=== PATIENT | female | born 1985 | race Caucasian/White ===

== ENCOUNTER 2018-03-26 18:14 | Emergency (ER) | payer BC, OTHER ==
[~2018-03-26 18:14] MED LIST: IBUP100T54 PO; IBUP600T22 PO; PROM-110 PO
--- NOTE | 2018-03-26 18:23 | ER Report ---
History and Physical Time Seen By MD: 18:23 Hx. of Stated Complaint: MIGRAINE X 2 WEEKS GETTING WORSE WENT FROM A 6 TO A 10 ON PAIN SCALE IN A MATTER OF MINUTES HPI/ROS CHIEF COMPLAINT: migraine headache HISTORY OF PRESENT ILLNESS: This is a 32 year old female. She has a migraine headache. Present for the last 2 weeks. Typical presentation for her headaches, often lasting a long time. However, severe worsening over the last few hours to a 10 on a 1-10 scale. This is the worst headache she has ever had. She has naus ea, photophobia, flashing lights. Gets some speech disturbance, mixing up words. Having shaking of arms/legs. These are all typical symptoms. Has had long lasting headaches, longest in the past was about 2 months. Took over the counter Ibuprofen, which is what she normally uses, without improvement. No other medications used for headaches. No fevers or chills. No recent illness, cough, sore throat or runny nose. No chest pain or shortness of breath. REVIEW OF SYSTEMS: As above. Allergies: Coded Allergies: acetaminophen (Verified Allergy, Intermediate, VOMITING AND THROAT SWELLING., 03/26/18) hydrocodone (Verified Allergy, Intermediate, VOMITING AND THROAT SWELLING., 03/26/18) Home Meds Active Scripts Ketorolac Tromethamine (KETOROLAC TROMETHAMINE) 10 Mg Tab, 10 MG PO Q6H PRN for PAIN, #12 TAB 0 Refills Prov:WILBER VELAZQUEZ MD 03/26/18 Promethazine Hcl (PROMETHAZINE HCL) 25 Mg Tablet, 25 MG PO Q8H PRN for NAUSEA/VOMITING, #20 TAB 0 Refills Prov:WILBER VELAZQUEZ MD 03/26/18 Discontinued Reported Medications Ibuprofen (IBUPROFEN) 100 Mg Tablet, 800 MG PO BID 05/14/13 Discontinued Scripts Ibuprofen (IBUPROFEN) 600 Mg Tablet, 1 TAB PO Q6H PRN for PAIN, #30 Prov:SHRUTHI WARD DO 05/19/13 Promethazine Hcl (PROMETHAZINE HCL) 25 Mg Tablet, 25 MG PO Q4H PRN for NAUSEA, #14 TAB Prov:SHRUTHI WARD DO 05/14/13 Reviewed Nurses Notes: Yes Hx Smoking: No Hx Substance Use Disorder: No Hx Alcohol Use: No Constitutional Vital Sign - Last 24 Hours 10/1703/26/18 03/26/18 03/26/18 18:14 18:17 18:18 18:30 Temp 98.1 Pulse 69 71 Resp 12 B/P (MAP) 136/100 (112) 136/100 133/76 (95) Pulse Ox 93 93 O2 Delivery Room Air Room Air 03/26/18 03/26/18 03/26/18 03/26/18 18:44 19:00 19:05 19:43 Pulse 68 69 B/P (MAP) 124/85 (98) 118/83 (95) Pulse Ox 91 95 O2 Delivery Room Air Room Air 03/26/18 03/26/18 03/26/18 03/26/18 20:00 20:05 20:30 20:35 Pulse 71 66 B/P (MAP) 120/94 (103) 115/67 (83) Pulse Ox 92 94 O2 Delivery Room Air Room Air 03/26/18 03/26/18 03/26/18 03/26/18 20:40 21:00 21:10 21:30 Pulse 69 69 B/P (MAP) 117/65 (82) 113/64 (80) Pulse Ox 93 94 O2 Delivery Room Air Room Air 03/26/18 21:40 Pulse 68 Pulse Ox 93 O2 Delivery Room Air Physical Exam General Appearance: The patient is alert. Acute distress due to headache. Non-toxic in appearance. Eyes: Pupils are equal, round. Reactive to light. No pallor, injection or icterus. Extraocular movements are intact. Photophobia present. ENT: Mucous membranes are moist. Normal oral mucosa. Posterior oropharynx is normal. Neck: Supple and non tender. No lymphadenopathy. Respiratory: Lungs are clear to auscultation. Cardiovascular: Regular rate and rhythm. No murmurs, gallops or rubs. Normal capillary refill. Neurological: Alert and oriented x3. Cranial nerves II through XII show no acute deficits on my exam. No focal neurologic deficits. Skin: Warm and dry. Musculoskeletal: Extremities are nontender. No tenderness in palpation of the neck/spine. DIFFERENTIAL DIAGNOSIS: After history and physical exam, differential diagnosis was considered for headache including but not limited to subarachnoid hemorrhage, migraine headache, tension headache and infectious causes such as meningitis, pharyngitis and sinusitis. Medical Decision Making Data Points Result Diagram: 10/17/18 1846 10/17/18 1846 Laboratory Hematology Test 03/26/18 18:46 Red Blood Count 5.23 M/uL (4.17-5.56) Mean Corpuscular Volume 85.7 fL (80.0-96.0) Mean Corpuscular Hemoglobin 29.9 pg (26.0-33.0) Mean Corpuscular Hemoglobin Concent 34.8 g/dL (32.0-36.0) Red Cell Distribution Width 13.3 % (11.5-14.5) Mean Platelet Volume 7.6 fL (7.2-11.1) Neutrophils (%) (Auto) 52.7 % (39.4-72.5) Lymphocytes (%) (Auto) 36.1 % (17.6-49.6) Monocytes (%) (Auto) 7.0 % (4.1-12.4) Eosinophils (%) (Auto) 3.5 % (0.4-6.7) Basophils (%) (Auto) 0.7 % (0.3-1.4) Nucleated RBC Relative Count (auto) 0.0 /100WBC Neutrophils # (Auto) 3.5 K/uL (2.0-7.4) Lymphocytes # (Auto) 2.4 K/uL (1.3-3.6) Monocytes # (Auto) 0.5 K/uL (0.3-1.0) Eosinophils # (Auto) 0.2 K/uL (0.0-0.5) Basophils # (Auto) 0.0 K/uL (0.0-0.1) Nucleated RBC Absolute Count (auto) 0.00 K/uL Prothrombin Time 13.7 seconds (12.0-14.4) Prothromb Time International Ratio 1.05 Activated Partial Thromboplast Time 30 seconds (23-35) Sodium Level 139 mmol/L (137-145) Potassium Level 3.6 mmol/L (3.5-5.0) Chloride Level 102 mmol/L (98-107) Carbon Dioxide Level 24 mmol/L (22-31) Blood Urea Nitrogen 10 mg/dl (7-18) Creatinine 0.60 mg/dl (0.52-1.04) Glomerular Filtration Rate Calc > 60.0 Random Glucose 90 mg/dl (75-110) Calcium Level 8.9 mg/dl (8.4-10.2) Magnesium Level 1.9 mg/dl (1.7-2.2) Total Bilirubin 0.4 mg/dl (0.2-1.3) Aspartate Amino Transf (AST/SGOT) 24 U/L (0-35) Alanine Aminotransferase (ALT/SGPT) 36 U/L (0-56) Alkaline Phosphatase 75 U/L (0-126) Total Protein 7.6 g/dl (6.3-8.2) Albumin 4.1 g/dl (3.5-5.0) Human Chorionic Gonadotropin, Qual Negative (NEGATIVE) Chemistry Test 03/26/18 18:46 White Blood Count 6.7 k/uL (4.5-11.0) Red Blood Count 5.23 M/uL (4.17-5.56) Hemoglobin 15.6 g/dL (12.0-16.0) Hematocrit 44.8 % (34.0-47.0) Mean Corpuscular Volume 85.7 fL (80.0-96.0) Mean Corpuscular Hemoglobin 29.9 pg (26.0-33.0) Mean Corpuscular Hemoglobin Concent 34.8 g/dL (32.0-36.0) Red Cell Distribution Width 13.3 % (11.5-14.5) Platelet Count 279 K/uL (150-450) Mean Platelet Volume 7.6 fL (7.2-11.1) Neutrophils (%) (Auto) 52.7 % (39.4-72.5) Lymphocytes (%) (Auto) 36.1 % (17.6-49.6) Monocytes (%) (Auto) 7.0 % (4.1-12.4) Eosinophils (%) (Auto) 3.5 % (0.4-6.7) Basophils (%) (Auto) 0.7 % (0.3-1.4) Nucleated RBC Relative Count (auto) 0.0 /100WBC Neutrophils # (Auto) 3.5 K/uL (2.0-7.4) Lymphocytes # (Auto) 2.4 K/uL (1.3-3.6) Monocytes # (Auto) 0.5 K/uL (0.3-1.0) Eosinophils # (Auto) 0.2 K/uL (0.0-0.5) Basophils # (Auto) 0.0 K/uL (0.0-0.1) Nucleated RBC Absolute Count (auto) 0.00 K/uL Prothrombin Time 13.7 seconds (12.0-14.4) Prothromb Time International Ratio 1.05 Activated Partial Thromboplast Time 30 seconds (23-35) Glomerular Filtration Rate Calc > 60.0 Calcium Level 8.9 mg/dl (8.4-10.2) Magnesium Level 1.9 mg/dl (1.7-2.2) Total Bilirubin 0.4 mg/dl (0.2-1.3) Aspartate Amino Transf (AST/SGOT) 24 U/L (0-35) Alanine Aminotransferase (ALT/SGPT) 36 U/L (0-56) Alkaline Phosphatase 75 U/L (0-126) Total Protein 7.6 g/dl (6.3-8.2) Albumin 4.1 g/dl (3.5-5.0) Human Chorionic Gonadotropin, Qual Negative (NEGATIVE) Coagulation Test 03/26/18 18:46 Prothrombin Time 13.7 seconds Prothromb Time International Ratio 1.05 Activated Partial Thromboplast Time 30 seconds EKG/Imaging Imaging HEAD W/O CONTRAST Provided history: Headache Additional pertinent history: none TECHNIQUE: Imaging was obtained from the skull base through the vertex without intravenous contrast. Source images were reformatted in the coronal sagittal planes. One of the following dose optimization techniques was utilized in the performance of this exam: Automated exposure control; adjustment of the mA and/or kV according to the patient's size; or use of an iterative reconstruction technique. Specific details can be referenced in the facility's radiology CT exam operational policy. Additional imaging: none COMPARISON STUDIES: No relevant priors FINDINGS: Brain volume: Normal Acute cortical ischemia: None Chronic cortical and ganglionic ischemia: none significant Hemorrhage: None Masses / edema: There is a 2 mm hyperdensity projecting in the midline within the anterior third ventricle. This most likely minimal calcification of the choroid though I see no additional coronary calcification in this region. A very early colloid cyst is possible but less likely. White matter: Normal Vessels: Normal Extra-axial: None significant. Globular calcification of the pineal noted, typically not significant. No soft tissue attenuation mass. Calvarium / scalp: Negative Skull base: negative Visualized sinuses / orbits: negative IMPRESSION: 1. No evidence of hemorrhage or ischemia. 2. Small focus of hyperdensity in the midline of the anterior third ventricle. See above comments. This is probably not significant, however I would suggest a follow-up examination, preferably MRI in one year to document stability. Report Dictated By: Gonzales Valerio MD at 03/26/2018 7:53 PM ED Course/Re-evaluation Clinical Indication for ER IV: Hydration, IV Access ED Course Improved with Phenergan 12.5mg IV and Benadryl 25mg IV. Given 1000cc NS IV as well. CT scan negative for bleed. Patient given Toradol 30mg IV as well. Pain down to 5 on a 1-10 scale. Sleeping. Given oral Toradol and Phenergan that she c an use at home. Decision to Disposition Date: Mar 26, 2018 Decision to Disposition Time: 21:38 Depart Departure Latest Vital Signs Vital Signs Date Time Temp Pulse Resp B/P (MAP) Pulse Ox O2 Delivery O2 Flow Rate FiO2 03/26/18 21:40 68 93 Room Air 03/26/18 21:30 113/64 (80) 03/26/18 18:18 98.1 12 Impression: Primary Impression: Migraine Condition: Improved Disposition: HOME OR SELF-CARE New Scripts Ketorolac Tromethamine (KETOROLAC TROMETHAMINE) 10 Mg Tab 10 MG PO Q6H PRN for PAIN, #12 TAB 0 Refills Prov: WILBER VELAZQUEZ MD 03/26/18 Promethazine Hcl (PROMETHAZINE HCL) 25 Mg Tablet 25 MG PO Q8H PRN for NAUSEA/VOMITING, #20 TAB 0 Refills Prov: WILBER VELAZQUEZ MD 03/26/18 Patient Instructions: Migraine Headache (ED) Additional Instructions: Rest and increase fluid intake the next few days. Take Toradol 10mg, one every 6 hours as needed for headache. Take Phenergan 25mg, one every 8 hours as needed for headache and nausea. Problem Qualifiers Primary Impression: Migraine Migraine type: unspecified Status migrainosus presence: without status migrainosus Intractability: not intractable Qualified Codes: G43.909 - Migraine, unspecified, not intractable, without status migrainosus WILBER VELAZQUEZ MD Mar 26, 2018 18:23
[2018-03-26] MEDS ORDERED: PROMETHAZINE 25 MG/ML 1 ML AMP IVP ONE (18:40)
[2018-03-26] MEDS ORDERED: diphenhydrAMINE 50 MG/ML VIAL IVP ONE (18:40)
[2018-03-26] MEDS ORDERED: NS(*) 0.9% 1000 ML BAG 1,000 ML IV ONE (18:40)
[2018-03-26 19:08] LABS: INR 1.05
[2018-03-26 19:13] LABS: PLATELET COUNT, AUTOMATED 279 K/uL (150-450)
--- NOTE | 2018-03-26 20:08 | RADIOLOGY IMAGING REPORT ---
FACILITY: [facility] PATIENT NAME: Ginger Daugherty : 1985 MR: [id number] V: [id number] EXAM DATE: ORDERING PHYSICIAN: WILBER VELAZQUEZ TECHNOLOGIST: Location: [facility] - [place] Patient: Ginger Daugherty : 1985 Visit/Account:[id number] Date of Sevice: 03/26/2018 HEAD W/O CONTRAST Provided history: Headache Additional pertinent history: none TECHNIQUE: Imaging was obtained from the skull base through the vertex without intravenous contrast. Source images were reformatted in the coronal sagittal planes. One of the following dose optimization techniques was utilized in the performance of this exam: Autom ated exposure control; adjustment of the mA and/or kV according to the patient's size; or use of an i terative reconstruction technique. Specific details can be referenced in the facility's radiology CT exam operational policy. Additional imaging: none COMPARISON STUDIES: No relevant priors FINDINGS: Brain volume: Normal Acute cortical ischemia: None Chronic cortical and ganglionic ischemia: none significant Hemorrhage: None Masses / edema: There is a 2 mm hyperdensity projecting in the midline within the anterior third vee tricle. This most likely minimal calcification of the choroid though I see no additional coronary carlos cification in this region. A very early colloid cyst is possible but less likely. White matter: Normal Vessels: Normal Extra-axial: None significant. Globular calcification of the pineal noted, typically not significant . No soft tissue attenuation mass. Calvarium / scalp: Negative Skull base: negative Visualized sinuses / orbits: negative IMPRESSION: 1. No evidence of hemorrhage or ischemia. 2. Small focus of hyperdensity in the midline of the anterior third ventricle. See above comments. Th is is probably not significant, however I would suggest a follow-up examination, preferably MRI in on e year to document stability. Report Dictated By: Gonzales Valerio MD at 03/26/2018 7:53 PM Report E-Signed By: Gonzales Valerio MD at 03/26/2018 8:03 PM WSN:[id number]
[2018-03-26] MEDS ORDERED: KETOROLAC 30 MG/ML VIAL IVP ONE (21:10)
[2018-03-26 21:30] VITALS: BP 113/64
[2018-03-26] MEDS ORDERED: KETOROLAC TROM 10 MG TAB TH PO ONE (21:40)
[2018-03-26] MEDS ORDERED: PROMETHAZINE HCL 25 MG TAB TH 2 TAB/BOTTLE PO ONE (21:40)
[2018-03-26] MEDS ORDERED: PROM-110 PO (21:53)
[2018-03-26] MEDS ORDERED: KET10 PO (21:53)
== END 2018-03-26 22:02 | disposition home or self-care (01) ==
LOC: ER 18:55
DX: G43.909 Migraine, unspecified, not intractable, without status migrainosus (principal)
CPT/HCPCS: 83735; 84703; 85025; 85610; 85730; 96361; 96374; 96375; 99284; J1200; J1885; J2550; J7030; 70450; 82040; 82247; 82310; 82374; 82435; 82565; 82947; 84075; 84132; 84155; 84295; 84450; 84460; 84520

== ENCOUNTER 2018-04-13 14:22 | Emergency (ER) | payer OTHER ==
[~2018-04-13 14:22] MED LIST changes: +KET10 PO
--- NOTE | 2018-04-13 14:37 | ER Report ---
History and Physical Time Seen By MD: 14:36 Hx. of Stated Complaint: migraine x 35 days with transient loss of vision and balance difficulties. HPI/ROS CHIEF COMPLAINT: Migraine headache HISTORY OF PRESENT ILLNESS: Patient is a 32-year-old female with a history of migraines here with migraine headache for the past 35 days. Patient was evaluated on the for similar symptoms at which time she had a CT scan of the head which was unremarkable. Patient reports taking Toradol intermittently without relief of symptoms. Patient reports that the distribution of her current symptoms are similar to prior episodes. Patient is afebrile, hemodynamically stable and denies neurological deficits of distal extremity weakness or paresthesias. Patient is eating and drinking without issues and denies fevers, chest pain, shortness breath, abdominal pain, vomiting. She does endorse photosensitivity. Denies recent trauma to the head. REVIEW OF SYSTEMS: Constitutional: No fever, no chills. Eyes: No discharge. ENT: No sore throat. Cardiovascular: No chest pain, no palpitations. Respiratory: No cough, no shortness of breath. Gastrointestinal: No abdominal pain, no vomiting, + nausea. Genitourinary: No hematuria. Musculoskeletal: No back pain. Skin: No rashes. Neurological: + headache,, no dyspnea distal extremity paresthesias, motor weakness Allergies: Coded Allergies: acetaminophen (Verified Allergy, Intermediate, VOMITING AND THROAT SWELLING., 04/13/18) hydrocodone (Verified Allergy, Intermediate, VOMITING AND THROAT SWELLING., 04/13/18) Home Meds Active Scripts Ketorolac Tromethamine (KETOROLAC TROMETHAMINE) 10 Mg Tab, 10 MG PO Q6H PRN for PAIN, #12 TAB 0 Refills Prov:WILBER VELAZQUEZ MD 03/26/18 Promethazine Hcl (PROMETHAZINE HCL) 25 Mg Tablet, 25 MG PO Q8H PRN for NAUSEA/VOMITING, #20 TAB 0 Refills Prov:WILBER VELAZQUEZ MD 03/26/18 Hx Smoking: No Hx Substance Use Disorder: No Hx Alcohol Use: No Constitutional Vital Sign - Last 24 Hours 04/13/18 14:31 Temp 97.8 Pulse 76 Resp 16 B/P (MAP) 128/80 Pulse Ox 94 O2 Delivery Room Air Physical Exam General Appearance: The patient is alert, has no immediate need for airway protection and no signs of toxicity. Mild distress secondary to pain Eyes: Pupils equal and round no pallor or injection. ENT, Mouth: Mucous membranes are moist. Respiratory: There are no retractions, lungs are clear to auscultation. Cardiovascular: Regular rate and rhythm. Gastrointestinal: Abdomen is soft and non tender, no masses, bowel sounds normal. Neurological: No focal neurological deficits Skin: Warm and dry, no rashes. Musculoskeletal: Neck is supple non tender. Extremities are nontender, nonswollen and have full range of motion. DIFFERENTIAL DIAGNOSIS: After history and physical exam differential diagnosis was considered for headache including but not limited to subarachnoid hemorrhage, migraine headache, tension headache and infectious causes such as meningitis, pharyngitis and sinusitis. Medical Decision Making ED Course/Re-evaluation ED Course Patient is a 32-year-old female here with suspected migraine which is been present for the past 35 days. Patient was seen here previously on the at which time she had had a negative CT of the head. Patient reports taking Toradol at home without significant relief of symptoms. She was given IV fluids, Reglan, Benadryl, Toradol, Decadron, magnesium today for symptom management and had significant relief of symptoms. Due to the patient's recurrent headaches and l jessa-duration of migraines, I recommended that she follow up with a neurologist or a headache specialist for further evaluation. Patient was stable at time of discharge. Decision to Disposition Date: Apr 13, 2018 Decision to Disposition Time: 16:33 Depart Departure Latest Vital Signs Vital Signs Date Time Temp Pulse Resp B/P (MAP) Pulse Ox O2 Delivery O2 Flow Rate FiO2 04/13/18 14:31 97.8 76 16 128/80 94 Room Air Impression: Primary Impression: Migraine Condition: Improved Disposition: HOME OR SELF-CARE Patient Instructions: Migraine Headache (GEN) Additional Instructions: Please drink plenty of water. Please follow-up with your family doctor in the next week. Please consider being evaluated by a neurologist or a headache specialist in order to be placed on migraine medications that may be more effective than [id number] medications. Please return promptly with recurrent headaches, neurological deficits such as weakness, numbness, fevers. DAVID BYERS DO Apr 13, 2018 14:37
[2018-04-13] MEDS ORDERED: NS(*) 0.9% 1000 ML BAG 1,000 ML IV ONE (14:44)
[2018-04-13] MEDS ORDERED: METOCLOPRAMIDE 10 MG/2 ML SDV IVP ONE (14:45)
[2018-04-13] MEDS ORDERED: diphenhydrAMINE 50 MG/ML VIAL IVP ONE (14:45)
[2018-04-13] MEDS ORDERED: DEXAMETHASONE SOD PHOS 10MG/ML IVP ONE (14:45)
[2018-04-13] MEDS ORDERED: KETOROLAC 30 MG/ML VIAL IVP ONE (14:45)
[2018-04-13] MEDS ORDERED: MAGNESIUM SUL/D5W* 1 GM/100 ML 100 ML IVPB ONE (14:45)
[2018-04-13 16:30] VITALS: BP 97/66
== END 2018-04-13 16:47 | disposition home or self-care (01) ==
LOC: ER 14:37
DX: G43.909 Migraine, unspecified, not intractable, without status migrainosus (principal)
CPT/HCPCS: 96365; 96366; 96375; 99284; J1100; J1200; J1885; J2765; J3475; J7030

== ENCOUNTER → 2018-06-06 | Outpatient (CLI) | payer OTHER ==
[2018-06-06 12:00] LABS: PLATELET COUNT, AUTOMATED 255 K/uL (150-450)
== END ==
LOC: LAB 08:03
PROVIDERS: ATTEND Obstetrics & Gynecology
DX: Z34.91 Encounter for supervision of normal pregnancy, unspecified, first trimester (principal)
CPT/HCPCS: 36415; 81001; 85025; 86592; 86703; 86762; 86850; 86900; 86901; 87088; 87340

== ENCOUNTER → 2018-08-28 | Outpatient (CLI) | payer OTHER ==
--- NOTE | 2018-08-28 13:29 | RADIOLOGY IMAGING REPORT ---
[place] [facility] [place] NAME: Ginger Daugherty : 1985 MR: [id number] V: [id number] EXAM DATE: ORDERING PHYSICIAN: MAYRA MAURO [place]CHN[place] [facility] [place] D[place] : 1985 Visit/Account:[id number] Date of Sevice: 08/28/2018 EXAMINATION: Ultrasound transabdominal OB > 14 weeks with anatomic evaluation HISTORY: Anatomic survey COMPARISON: None. TECHNIQUE: Transabdominal imaging was performed for assessment of the fetus and maternal pelvic structures. T ransvaginal imaging was not performed. FINDINGS: Placenta: Fundal without previa. Uterus: Gravid, otherwise normal Cervix: Long and closed. Maternal Ovaries: Not visualized. Maternal and other adnexa findings: Not evaluated Intrauterine gestations: One. presentation: Variable heart rate: Normal and regular at 142 bpm Amniotic fluid index: 20.02 cm Largest amniotic fluid pocket: 6.93 cm Gestational Parameters: BPD: 5.35 cm 22 weeks/ two days, 64% HC: 20.55 cm two weeks/ five days, 72% AC: 17.53 cm 22 weeks/ four days, 62% FL: 3.66 cm 21 weeks/ five days, 32% Average ultrasound age (AUA): 22 weeks/three days, KATLYN 12/29/2018 Estimated gestational age by KATLYN: 21 weeks/six days, KATLYN 01/02/2019 Estimated weight (EFW): 480 grams +/- 70 grams EFW for KATLYN: 59 percentile Anatomic Survey: Intracranial structures, 4-chamber heart, stomach, kidneys, urinary bladder, spine, 3-vessel cord and cord insertion are unremarkable. Two upper and two lower extremities visualized. Cardiac ventricula r outflow tracts, palate and lips are unremarkable in appearance. IMPRESSION: Single viable fetus in variable presentation with an estimated gestational age by measur ements of 22 weeks and three days. The estimated gestational age by LMP is 21 weeks and six days Report Dictated By: Modesta Fournier MD at 08/28/2018 12:56 PM Report E-Signed By: Modesta Fournier MD at 08/28/2018 1:24 PM ANGELN:TATIANNA
== END ==
LOC: US 00:17
PROVIDERS: ATTEND Obstetrics & Gynecology
DX: Z36.89 Encounter for other specified antenatal screening (principal); Z32.2 Encounter for childbirth instruction
CPT/HCPCS: 76805

== ENCOUNTER → 2018-10-10 | Outpatient (CLI) | payer OTHER ==
[~2018-10-10] MED LIST changes: +DIPH0.5S2 IM
[2018-10-10 11:29] LABS: PLATELET COUNT, AUTOMATED 248 K/uL (150-450)
== END ==
LOC: LAB 09:54
PROVIDERS: ATTEND Advanced Practice Midwife
DX: Z34.92 Encounter for supervision of normal pregnancy, unspecified, second trimester (principal)
CPT/HCPCS: 36415; 82950; 85025

== ENCOUNTER → 2018-10-14 | Outpatient (CLI) | payer OTHER ==
[~2018-10-14] MED LIST changes: +BLOO-960 MC; +LANC-165 MC; +[UNRECOGNIZED DRUG - CODE] MC
== END ==
LOC: LAB 07:30
PROVIDERS: ATTEND Advanced Practice Midwife
DX: O99.810 Abnormal glucose complicating pregnancy (principal)
CPT/HCPCS: 36415; 82951; 82952

== ENCOUNTER → 2018-10-16 | Outpatient (CLI) | payer OTHER ==
--- NOTE | 2018-10-16 17:19 | RADIOLOGY IMAGING REPORT ---
FACILITY: [facility] - [place] PATIENT NAME: Ginger Daugherty : 1985 MR: [id number] V: [id number] EXAM DATE: ORDERING PHYSICIAN: WILLIE CHOPRA TECHNOLOGIST: Location: Patient: Ginger Daugherty : 1985 Visit/Account:[id number] Date of Sevice: 10/16/2018 EXAMINATION: Ultrasound transabdominal OB > 14 weeks with anatomic evaluation HISTORY: Growth check COMPARISON: None. TECHNIQUE: Transabdominal imaging was performed for assessment of the fetus and maternal pelvic structures. T ransvaginal imaging was not performed. FINDINGS: Placenta: Fundal without previa. Uterus: Gravid, otherwise normal Cervix: Long and closed. Maternal Ovaries: Not visualized. Maternal and other adnexa findings: Negative. Intrauterine gestations: One. presentation: Cephalic heart rate: Normal and regular at 152 bpm Amniotic fluid index: 22.46 cm Largest amniotic fluid pocket: 6.36 cm Gestational Parameters: BPD: 7.79 cm 31 weeks/ 2 days, 95th percentile HC: 28.42 cm 31 weeks/ 2 days, 84 percentile AC: 25.81 cm 30 weeks/ 0 days, 76 percentile FL: 5.25 cm 28 weeks/ 0 days, 14 percentile Average ultrasound age (AUA): 30 weeks/1 days, Estimated gestational age by LMP: 28 weeks/6 days, KATLYN 01/02/2019 Estimated weight (EFW): 1409 grams +/- 206 grams EFW for LMP: 63 percentile Anatomic Survey: Visualized intracranial contents and the abdomen and pelvis are normal. IMPRESSION: 1. Single live intrauterine fetus in the cephalic presentation. 2. Ultrasound age is 30 weeks and 1 days, consistent with gestational age based on LMP. Gestational a ge by LMP is 28 weeks and 6 days corresponding to estimated date of delivery 01/02/2019. Report Dictated By: Abdelrahman Roland at 10/16/2018 5:05 PM Report E-Signed By: Abdelrahman Roland at 10/16/2018 5:14 PM WSN:[id number]
== END ==
LOC: RAD 15:00
PROVIDERS: ATTEND Advanced Practice Midwife
DX: Z02.9 Encounter for administrative examinations, unspecified (principal)

== ENCOUNTER 2018-10-23 10:16 | Outpatient (RCR) | payer OTHER ==
--- NOTE | 2018-10-24 16:16 | Medical Nutrition Therapy ---
Nutrition/Food History Breakfast: WG joselyn chawla, PB Lunch: slad with cheese and croutons Dinner: 2 sl pizza, breadstick Snacks: banana, 2 cuties, almonds Nutritional Education Nutrition Education Topic: Diabetic Nutrition (estational) Learning Readiness: Interested Teaching Methods: Discussion, Handout, Demonstration Response to Teaching: Verbalize understanding Teaching Recipient: Patient, Significant Other Nutrition Counseling: late entry for 10/23 Reviewed what is gestational DM. Reviewed reviewed desired range of BG. Demonstated glucometer and how to use. Reviewed glycemic response to CHO. Reviewed high CHO, protein and fat foods. Encouraged pt eat high protein foods whenever she eats a high CHO. Provided meal plan of 30gm CHO + protein and fat at breakfast, 45 gm CHO with lunch and supper and 15gm CHO + protein or fat snacks tid. Pt will check on work schedule before makeing f/u visit. 10/24 f/u phone call. Pt states all BG are WNR except a 97 FBG this morning. Pt having no problems with glucometer. Still does not have work scheduled. Pt was encouraged to call for appointment if BG not within range or had quetions or concerns with diet. Nutrition Monitoring & Eval RD Patient Assessment Time: [address] Assessment Type: RD Education Nutritional Comment: Provided 60 minute diabetes education forcusing on nutrion, gestational DM and glucometer teaching Copies To Copies to: WILLIE CHOPRA CNM ; SEFERINO WHITING October 24, 2018 16:07
--- NOTE | 2018-11-05 17:06 | Medical Nutrition Therapy ---
Nutritional Education Nutrition Education Topic: Diabetic Nutrition (gestational) Learning Readiness: Interested Teaching Methods: Discussion Response to Teaching: Verbalize understanding Teaching Recipient: Patient, Significant Other Nutrition Counseling: Reviewed BG records and intake. most BG were within desired range. Pt had 2 low BG before breakfast of 32 and 65. Recommend pt eat 15 gm quick acting CHO wait 15 minute and recheck BG and repeat until WNR then eat breakfast. Pt had several slightly high BG at supper. Identified at those times but either had higher glycemic index drink or excessive CHO. Discussed other option when going out to eat or movies that would be within her recommended CHO limit or lower GI food. Nutrition Monitoring & Eval RD Patient Assessment Time: [address] Assessment Type: RD Education Nutritional Comment: Provided 45 minute diabetes education forcusing on nutrion and blood glucose readings. Copies To Copies to: WILLIE CHOPRA CNM ; SEFERINO WHITING November 05, 2018 17:06
== END 2018-11-12 15:52 | disposition home or self-care (01) ==
LOC: DIET 10:16
PROVIDERS: ATTEND Advanced Practice Midwife
DX: O24.419 Gestational diabetes mellitus in pregnancy, unspecified control (principal)
CPT/HCPCS: G0108 ×4

== ENCOUNTER → 2018-11-20 | Outpatient (CLI) | payer OTHER ==
--- NOTE | 2018-11-20 11:20 | RADIOLOGY IMAGING REPORT ---
[facility] PATIENT NAME: Ginger Daugherty : 1985 MR: [id number] V: [id number] EXAM DATE: ORDERING PHYSICIAN: DAVON BAILEY TECHNOLOGIST: Location: [facility] Patient: Ginger Daugherty : 1985 Visit/Account:[id number] Date of Sevice: 11/20/2018 EXAMINATION: Ultrasound transabdominal OB > 14 weeks with anatomic evaluation HISTORY: Size date discrepancy COMPARISON: October 16, 2018 TECHNIQUE: Transabdominal imaging was performed for assessment of the fetus and maternal pelvic structures. T ransvaginal imaging was not performed. FINDINGS: Placenta: Fundal without previa. Uterus: Gravid, otherwise normal Cervix: Long and closed. Maternal Ovaries: Not visualized. Maternal and other adnexa findings: Not visualized Intrauterine gestations: One. presentation: Cephalic presentation with spine to the maternal left heart rate: Normal and regular at 138 bpm Amniotic fluid index: 16.49 cm Largest amniotic fluid pocket: 6.77 cm Gestational Parameters: BPD: 9.1 cm 37 weeks/ zero days, greater than 98% HC: 32.5 cm 36 weeks/ six days, 85% AC: 31.75 cm 35 weeks/ five days, 93% FL: 6.90 cm 35 weeks/ three days, 80% Average ultrasound age (AUA): 36 weeks/two days, KATLYN 12/16/2018 Estimated gestational age by LMP: 33 weeks/six days, KATLYN 01/02/2019 Estimated weight (EFW): 2786 grams +/- 407 grams EFW for KATLYN: 93 percentile Anatomic Survey: Anatomic survey not performed IMPRESSION: Single viable fetus in cephalic presentation with an estimated gestational age by measur ements 36 weeks and two days. The estimated gestational age by LMP is 33 weeks and six days. The estimated weight 2786 g equivalent to the 93rd percentile Report Dictated By: Modesta Fournier MD at 11/20/2018 11:07 AM Report E-Signed By: Modesta Fournier MD at 11/20/2018 11:14 AM WSN:[email or web address]
== END ==
LOC: RAD 09:56
PROVIDERS: ATTEND Obstetrics & Gynecology
DX: Z02.9 Encounter for administrative examinations, unspecified (principal)

== ENCOUNTER → 2018-12-04 | Outpatient (CLI) | payer OTHER | LOC: LAB 10:01 | PROVIDERS: ATTEND Obstetrics & Gynecology | DX: Z36.85 Encounter for antenatal screening for Streptococcus B (principal) | CPT/HCPCS: 87081 ==

== ENCOUNTER → 2018-12-18 | Outpatient (CLI) | payer OTHER ==
--- NOTE | 2018-12-18 11:09 | RADIOLOGY IMAGING REPORT ---
FACILITY: [facility] PATIENT NAME: Ginger Daugherty : 1985 MR: [id number] V: [id number] EXAM DATE: ORDERING PHYSICIAN: WILLIE CHOPRA TECHNOLOGIST: Location: [facility] Patient: Ginger Daugherty : 1985 Visit/Account:[id number] Date of Sevice: 12/18/2018 Limited OB ultrasound Indication: Size less than dates Comparison: 11/20/2018 FINDINGS: Intrauterine gestations: one presentation: Vertex heart rate: 144 bpm Amniotic fluid index: 18.8 cm Largest amniotic fluid pocket 7.2 cm Placenta: Fundal without previa Uterus: gravid, otherwise normal Cervix: Not visualized Gestational Parameters: BPD: 9.6 cm 39 weeks, 2 days, 95th percentile HC: 35.5 cm 41 weeks, 5 days, 97th percentile AC: 35.9 cm 39 weeks, 6 days, 97th percentile FL: 7.6 cm 39 weeks, 1 day, 79th percentile Average ultrasound age (AUA): 40 weeks, 0 days KATLYN: 12/18/2018 based on AUA Estimated weight (EFW): 3894 g, +/- 569 EFW for AUA: 95th percentile Anatomic survey: Not performed IMPRESSION: 1. Single live intrauterine gestation; estimated ultrasound age 40 weeks, 0 days, 2. Estimated weight 3894 g, 95th percentile. Report Dictated By: Manjinder Barrios DO at 12/18/2018 10:55 AM Report E-Signed By: Manjinder Barrios DO at 12/18/2018 11:01 AM WSN:[email or web address]
== END ==
LOC: RAD 09:57
PROVIDERS: ATTEND Obstetrics & Gynecology
DX: O26.843 Uterine size-date discrepancy, third trimester (principal); Z3A.40 40 weeks gestation of pregnancy

== ENCOUNTER 2018-12-23 23:34 | Outpatient (CLI) | payer OTHER ==
[2018-12-24 00:10] VITALS: BP 125/66
--- NOTE | 2018-12-24 00:17 | History & Physical ---
History of Present Illness EDC per U/S: Jan 02, 2019 Estimated Gestational Age: 38.5 Chief Complaint Contractions History of Present Illness 33-year-old at 38w5d presents to L&D for contractions. She denies loss of fluid or vaginal bleeding. She reports good movement. She denies preeclampsia symptoms. care by IMG. Her is complicated by GDMA1 and concern for macrosomia. Her last EFW on 12/18/18 was 95%ile at almost 4000gm. She has been noted to have a narrow pubic arch. She was offered PLTCD in clinic by Dr. Christina but elects for trial of labor. She is also GBS positive. History Patient's Blood Type: B Positive Rubella Status: Immune Group B Strep Screen: Positive Obstetrical History: Primip Past Medical History: PMH: Migraines PSH: Cholecystectomy 2006 Allergies: Coded Allergies: acetaminophen (Verified Allergy, Intermediate, VOMITING AND THROAT SWELLING., 04/13/18) hydrocodone (Verified Allergy, Intermediate, VOMITING AND THROAT SWELLING., 04/13/18) Social History: No T/E/D. . Family History: FH: cancer MGF (Lungs ) FH: cardiovascular disease MGM PGM FH: diabetes mellitus MGM MGF Med Rec Home Meds Active Scripts Blood Sugar Diagnostic (BLOOD GLUCOSE TEST) 1 Each Strip, 1 EACH QID for Gestational Diabetes, #100 STRIP 4 Refills Prov:WILLIE CHOPRA [facility] 10/14/18 Lancets (Blood Lancets) 30 Gauge Each, EA QID for Gestational Diabetes, #100 4 Refills Prov:WILLIE CHOPRA [facility] 10/14/18 Blood-Glucose Meter (BLOOD GLUCOSE METER) 1 Each Each, EACH for Gestational Diabetes, #1 0 Refills Check blood sugar every morning and 2 hours after each meal. Prov:WILLIE CHOPRA [facility] 10/14/18 Review of Systems Constitutional: No Fever Neurological: No Syncope Eyes: No Vision Change Cardiovascular: No Chest Pain Respiratory: No Shortness of Breath Gastrointestinal: No Nausea, No Vomiting, No Diarrhea Genitourinary: No Dysuria Musculoskeletal: No Pain Psychiatric: No Depression, No Anxiety Exam General Exam Vital Signs VS reviewed General Apperance: Alert/Awake/No Acute Distress Neuro: No Gross deficits Eyes: Normal Extraocular Movement & Vison Cardiovascular: Regular Rate and Rhythm Respiratory: No Respiratory Distress, Clear to Auscultation Abdomen: Gravid - Non-Tender : Normal Musculoskeletal: No Weakness/Pain Extremities: No Cyanosis,Clubbing or Edema Integumentary: Skin Intact without Lesions or Rash Psychological: Alert & Oriented X3, Appropriate Mood & Affect Cervical Dialation: 1 Cervical Effacement (%): 70 Cervical Consistency: Soft Cervical Position: Posterior Station: -2 Presentation: Vertex Fetus FHT Category: I Medical Decision Making Pre-Admit Course Medical Record Review: Yes Assessment and Plan Problems: (1) Uterine contractions Assessment & Plan: 33-year-old at 38w5d presents to L&D for contractions. Will monitor for cervical change. (2) GDM (gestational diabetes mellitus), class A1 Assessment & Plan: Will do random glucose and monitor glucose as needed. (3) Macrosomia affecting management of mother in third trimester Assessment & Plan: Last ultrasound on 12/18/18 showed: CHRISTOPHER 18.8cm, EFW 3894 gm (95%ile). She has been offered a primary due to this and having a narrow pubic arch. However, she declines and would like a trial of labor. Will monitor closely. (4) GBS (group B Streptococcus carrier), +RV culture, currently Assessment & Plan: If deemed in labor, will initiate PCN prophylaxis. (5) 38 weeks gestation of Problem Qualifiers (1) Macrosomia affecting management of mother in third trimester: Fetus number: single or unspecified fetus Qualified Codes: O36.63X0 - Maternal care for excessive growth, third trimester, not applicable or u nspecified MAYRA MAURO MD Dec 23, 2018 23:52
[2018-12-25] MEDS ORDERED: LR(*) 1000 ML BAG 1,000 ML IV PRN (20:08)
[2018-12-25] MEDS ORDERED: FAMOTIDINE(*) 20MG/50ML PREMIX 50 ML IVPB PRN (20:08)
[2018-12-25] MEDS ORDERED: OXYTOCIN 30 UNIT/NS 500 ML 500 ML IV PRN (20:08)
[2018-12-25] MEDS ORDERED: MISOPROSTOL 25 MCG CAP PV PRN (20:10)
[2018-12-25] MEDS ORDERED: FLUSH 10 ML SYR IVP PRN (20:10)
[2018-12-25] MEDS ORDERED: PENICILLIN G 5 MILLUN VIAL 5 MIU in NS(*) 0.9% 100 ML MINI-BAG 100 ML IVPB ONE (20:10)
[2018-12-25] MEDS ORDERED: fentaNYL CITR 100 MCG/2 ML AMP IVP PRN (20:10)
[2018-12-25] MEDS ORDERED: METOCLOPRAMIDE 10 MG/2 ML SDV IVP PRN (20:10)
[2018-12-25] MEDS ORDERED: LIDOCAINE/SOD BICARB 8.4% SYR SC PRN (20:10)
[2018-12-25] MEDS ORDERED: LIDOCAINE 1% LOCAL 300 MG/30ML INJ PRN (20:10)
[2018-12-26] MEDS ORDERED: PENICILLIN G 2.5 MILLUN/100 ML 100 ML IVPB SCH ×2 (16:00)
== END 2018-12-24 02:50 | disposition home or self-care (01) ==
LOC: OB 23:34 → L&D 23:34 → UNDOADMOB 23:34 → OB 23:34 → UNDODISOB 12-24 02:50 → L&D 12-24 02:50 → UNDOADMIN 12-25 18:42 → OB 12-25 18:42 → EDSTATUS 01-09 20:02
PROVIDERS: ATTEND Obstetrics & Gynecology
DX: O47.1 False labor at or after 37 completed weeks of gestation (principal); O36.63X0 Maternal care for excessive fetal growth, third trimester, not applicable or unspecified; O24.429 Gestational diabetes mellitus in childbirth, unspecified control; Z22.330 Carrier of Group B streptococcus; Z3A.38 38 weeks gestation of pregnancy
CPT/HCPCS: 36416; 59025; 82948; 99213

== ENCOUNTER 2018-12-25 18:46 | Inpatient (IN) | payer OTHER ==
[~2018-12-25] VITALS: Ht 157.5 cm; Wt 94.8 kg
[2018-12-25] MEDS ORDERED: ceFAZolin(*) 2GM/D5W 50ML 50 ML IVPB PRN (20:33)
[2018-12-25] MEDS ORDERED: FAMOTIDINE(*) 20MG/50ML PREMIX 50 ML IVPB PRN (20:33)
[2018-12-25] MEDS ORDERED: FLUSH 10 ML SYR IVP PRN (20:35)
[2018-12-25] MEDS ORDERED: LIDOCAINE/SOD BICARB 8.4% SYR SC PRN (20:35)
[2018-12-25] MEDS ORDERED: LIDOCAINE 1% LOCAL 300 MG/30ML INJ PRN (20:35)
[2018-12-25] MEDS ORDERED: MISOPROSTOL 25 MCG CAP PV PRN (20:35)
[2018-12-25] MEDS ORDERED: fentaNYL CITR 100 MCG/2 ML AMP IVP PRN (20:35)
[2018-12-25] MEDS ORDERED: METOCLOPRAMIDE 10 MG/2 ML SDV IVP PRN (20:35)
[2018-12-25] MEDS ORDERED: OXYTOCIN 30 UNIT/NS 500 ML 500 ML IV PRN (20:42)
[2018-12-25] MEDS: LR(*) 1000 ML BAG 1,000 ML IV PRN (20:50)
[2018-12-25] MEDS ORDERED: PENICILLIN G 5 MILLUN VIAL 5 MIU in NS(*) 0.9% 100 ML MINI-BAG 100 ML IVPB ONE (21:00)
[2018-12-25] MEDS ORDERED: PENICILLIN G 2.5 MILLUN/100 ML 100 ML IVPB SCH (21:00)
--- NOTE | 2018-12-25 21:09 | History & Physical ---
History of Present Illness EDC per U/S: Jan 02, 2019 Estimated Gestational Age: 38.6 Chief Complaint Contractions History of Present Illness 33-year-old at 38w6d presents to L&D for contractions. She has been zahira regularly for the past 2 days. She denies loss of fluid or vaginal bleeding. She reports good movement. She denies preeclampsia symptoms. care by IMG. Her is complicated by GDMA1 and concern for macrosomia. Her last EFW on 12/18/18 was 95%ile at almost 4000gm. She has been noted to have a narrow pubic arch. She was offered PLTCD in clinic by Dr. Christina but elects for trial of labor. She is also GBS positive. History Patient's Blood Type: B Positive Rubella Status: Immune Group B Strep Screen: Positive Obstetrical History: Primip Past Medical History: See PNR Allergies: Coded Allergies: acetaminophen (Verified Allergy, Intermediate, VOMITING AND THROAT SWELLING., 04/13/18) hydrocodone (Verified Allergy, Intermediate, VOMITING AND THROAT SWELLIN G., 04/13/18) Social History: No T/E/D. . Family History: FH: cancer MGF (Lungs ) FH: cardiovascular disease MGM PGM FH: diabetes mellitus MGM MGF Med Rec Home Meds Active Scripts Blood Sugar Diagnostic (BLOOD GLUCOSE TEST) 1 Each Strip, 1 EACH QID for Gestational Diabetes, #100 STRIP 4 Refills Prov:WILLIE CHOPRA [facility] 10/14/18 Lancets (Blood Lancets) 30 Gauge Each, [facility] QID for Gestational Diabetes, #100 4 Refills Prov:WILLIE CHOPRA [facility] 10/14/18 Blood-Glucose Meter (BLOOD GLUCOSE METER) 1 Each Each, [facility] for Gestational Diabetes, #1 0 Refills Check blood sugar every morning and 2 hours after each meal. Prov:WILLIE CHOPRA [facility] 10/14/18 Review of Systems Constitutional: No Fever Neurological: No Syncope Eyes: No Vision Change Cardiovascular: No Chest Pain Respiratory: No Shortness of Breath Gastrointestinal: No Nausea, No Vomiting, No Diarrhea Genitourinary: No Dysuria Musculoskeletal: No Pain Psychiatric: No Depression, No Anxiety Exam General Exam Vital Signs VS reviewed General Apperance: Alert/Awake/No Acute Distress Neuro: No Gross deficits Eyes: Normal Extraocular Movement & Vison Cardiovascular: Regular Rate and Rhythm Respiratory: No Respiratory Distress, Clear to Auscultation Abdomen: Gravid - Non-Tender : Normal Musculoskeletal: No Weakness/Pain Extremities: No Cyanosis,Clubbing or Edema Integumentary: Skin Intact without Lesions or Rash Psychological: Alert & Oriented X3, Appropriate Mood & Affect Cervical Dialation: 3 Cervical Effacement (%): 50 Cervical Consistency: Firm Cervical Position: Posterior Station: -3 Presentation: Vertex (by bedside ultrasound) Uterine Contraction Strength: Moderate UC Resting Tone: Soft Fetus Feeling Movement?: Yes FHT Category: I Assessment and Plan Problems: (1) Macrosomia affecting management of mother in third trimester Assessment & Plan: 33-year-old at 38w6d presents to L&D for contractions. Her is complicated by GDMA1 and concern for macrosomia. Her last EFW on 12/18/18 was 95%ile at almost 4000gm. She has been noted to have a narrow pubic arch. She was offered PLTCD in clinic by Dr. Christina but elects for trial of labor. She has been zahira regularly for the past 2 days. I am concerned the reason she is not changing is due to the size of the baby prohibiting the head from coming into the pelvis. The station is very high. Ultrasound does confirm vertex but it is not well applied. I have recommended augmentation to see if the problem is the strength of contractions. She is getting PCN now. Will plan pitocin at 2mU/min until her second dose of penicillin is in. Once that is in, will try to AROM and place IUPC. I again expressed my concern that she will have CPD and will likely require a delivery. I explained she will not be a candidate for forcep or vacuum delivery. (2) GBS (group B Streptococcus carrier), +RV culture, currently Assessment & Plan: Will start PCN protocol now. (3) GDM (gestational diabetes mellitus), class A1 Assessment & Plan: Plan accuchecks every hour in active labor, otherwise every 2hrs. (4) 38 weeks gestation of Problem Qualifiers (1) Macrosomia affecting management of mother in third trimester: Fetus number: single or unspecified fetus Qualified Codes: O36.63X0 - Maternal care for excessive growth, third trimester, not applicable or unspecified MAYRA MAURO MD Dec 25, 2018 20:44
[2018-12-25 21:27] VITALS: BP 128/66; Ht 157.5 cm; Wt 94.8 kg
[2018-12-25 21:40] LABS: PLATELET COUNT, AUTOMATED 220 K/uL (150-450)
[2018-12-26] VITALS (17 sets, daily range): BP systolic 104–128; BP diastolic 41–75
[2018-12-26] MEDS: PENICILLIN G 2.5 MILLUN/100 ML 100 ML IVPB SCH ×3 (01:00→09:29)
--- NOTE | 2018-12-26 01:49 | Labor Progress Note ---
Labor Subjective Progress Notes Subjective Pt is feeling more pressure and pain. She denies any other concerns. Labor Objective Vital Signs Vital Signs Date Time Temp Pulse Resp B/P (MAP) Pulse Ox O2 Delivery O2 Flow Rate FiO2 12/25/18 21:27 96.5 87 18 128/66 (86) 96 Room Air Vaginal Discharge/Fluid?: Clear Fluid Cervical Dialation: 4 (70) Cervical Effacement (%): 70 Cervical Consistency: Soft Cervical Position: Posterior Station: -2 Presentation: Vertex Uterine Contractions(Q min): 3 Uterine Contraction Strength: Moderate UC Resting Tone: Soft Fetus FHT Category: I General Exam General Appearance: Alert/Awake/No Acute Distress Respiratory: No Respiratory Distress Abdomen: Gravid - Non-Tender : Normal Musculoskeletal: No Weakness/Pain Extremities: No Cyanosis,Clubbing or Edema Integumentary: Skin Intact without Lesions or Rash Psychological: Alert & Oriented X3, Appropriate Mood & Affect Other Result Diagram: 12/25/182125 Assessment and Plan Problems: (1) Macrosomia affecting management of mother in third trimester Assessment & Plan: She has progressed to 4/70/-2/soft/post. AROM with clear fluid and IUPC placed. Will increase pitocin until she is adequate and monitor for cervical change and descent of the vertex. Recommended epidural for the patient to improve control of delivery if vaginal; and to minimize peroneal laceration. Patient will consider. Prior A/P: 33-year-old at 39w0d presents to L&D for contractions. Her is complicated by GDMA1 and concern for macrosomia. Her last EFW on 12/18/18 was 95%ile at almost 4000gm. She has been noted to have a narrow pubic arch. She was offered PLTCD in clinic by Dr. Christina but elects for trial of labor. I have expressed my concern that she will have CPD and will likely require a delivery. I explained she will not be a candidate for forcep or vacuum delivery. (2) GBS (group B Streptococcus carrier), +RV culture, currently Assessment & Plan: Continue PCN protocol. (3) GDM (gestational diabetes mellitus), class A1 Assessment & Plan: Continue accuchecks every 1-2 hours. Will do every hour once active. Normal levels so far in the 80s. (4) 38 weeks gestation of Problem Qualifiers (1) Macrosomia affecting management of mother in third trimester: Fetus number: single or unspecified fetus Qualified Codes: O36.63X0 - Maternal care for excessive growth, third trimester, not applicable or unspecified MAYRA MAURO MD Dec 26, 2018 01:49
[2018-12-26] MEDS ORDERED: LIDO/EPI 2% MPF 1:200,000 20ML EPI PRN (03:00)
[2018-12-26] MEDS ORDERED: BUPIVACAINE 0.5% INJ 30ML VIAL EPI PRN (03:00)
[2018-12-26] MEDS: LR(*) 1000 ML BAG 1,000 ML IV PRN (03:00)
[2018-12-26] MEDS ORDERED: LIDOCAINE/PF 2% 200MG/10ML AMP 200 MG/10 ML AMPUL EPI PRN (03:00)
[2018-12-26] MEDS ORDERED: FENTANYL/ROPIVACAINE 100 ML BAG EPI PRN (03:00)
[2018-12-26] MEDS ORDERED: fentaNYL CITR 100 MCG/2 ML AMP IT PRN (03:00)
[2018-12-26] MEDS ORDERED: BUPIVACAINE 0.25% MPF INJ EPI PRN (03:00)
[2018-12-26] MEDS ORDERED: ePHEDrine 25 MG/5 ML DISP.SYR IVP ONE (03:08)
[2018-12-26] MEDS ORDERED: ONDANSETRON 4 MG/2 ML VIAL ONE (03:09)
--- NOTE | 2018-12-26 04:26 | Anesthesia OB Pre-Anes Eval ---
History of Present Illness Anesthesia Start Date: Dec 26, 2018 Anesthesia Start Time: 03:35 OB Anesthesia Diagnosis: induction - medical Current Complication: diabetes, obesity EDC: Jan 02, 2019 : 1 Para: 1 Vital Signs: Vital Signs 12/25/18 21:27 Temp 96.5 Pulse 87 Resp 18 B/P (MAP) 128/66 (86) Pulse Ox 96 O2 Delivery Room Air Pain Ratin Heart Tones: 126 Result Diagram: 12/25/182125 Height (Inches): 62.00 Weight (Pounds): 209 BMI (kg/m2): 39.50 Past Medical History Medical History: diabetes, obesity Surgical History: cholecystectomy Previous Anesthesia: general Attended Childbirth Classes?: Yes Hx Anesthesia Reactions: No Hx Family Anesthesia Reaction: No Current Medications: pitocin Home Meds Active Scripts Blood Sugar Diagnostic (BLOOD GLUCOSE TEST) 1 Each Strip, 1 EACH QID for Gestational Diabetes, #100 STRIP 4 Refills Prov:WILLIE CHOPRA [facility] 10/14/18 Lancets (Blood Lancets) 30 Gauge Each, EA MC QID for Gestational Diabetes, #100 4 Refills Prov:WILLIE CHOPRA [facility] 10/14/18 Blood-Glucose Meter (BLOOD GLUCOSE METER) 1 Each Each, EACH for Gestational Diabetes, #1 0 Refills Check blood sugar every morning and 2 hours after each meal. Prov:WILLIE CHOPRA [facility] 10/14/18 Allergies: Coded Allergies: acetaminophen (Verified Allergy, Intermediate, VOMITING AND THROAT SWELLING., 04/13/18) hydrocodone (Verified Allergy, Intermediate, VOMITING AND THROAT SWELLING., 04/13/18) Anesthesia OB ROS Neurological: No migraines/headaches, No seizures, No neuropathy, No other ENT: Denies Tooth caps, Denies Loose teeth, Denies Chipped teeth, Denies Dentures, Denies Bridges, Denies Retainers, Denies Veneers, Denies Implants, Denies Tongue ring, Denies Other Pulmonary: No asthma, No smoker (pks/day/yrs), No other Airway Class: lll Cardiovascular ROS: No edema, No arrhythmia, No other GI ROS: clear liquids Last Solids Date: Dec 25, 2018 Last Solids Time: 15:00 ROS: No Herpes, No STD(s), No Liver Disease, No Renal Disease, No Other Endocrine ROS: diabetes Musculoskeletal ROS: No low back pain, No low back injury, No scoliosis, No other ASA Classification: 3 Assessment and Plan Anesthesia Plan: SEFERINO MCCABE CRNA Dec 26, 2018 04:26
--- NOTE | 2018-12-26 04:31 | Procedure Note ---
Anesthetic Placement Note Anesthesia Plan: CSE Permit for Anesthesia Signed: Yes Anesthesia Technique: Patient Sitting Anesthesia Prep: Chlorhexidine Interspace: L 3-4 Local Anesthetic: 1% Lidocaine Amount Local - cc's: 6 Anesthesia Needle: 17g Chago/Rodney Anesthesia Attempts: 2 (1st attempt at L2-3, got intrathecal in but threaded cath into vessel. To L3-4 and found space cath threaded ok) Loss of Resistance: Normal Saline Depth of BRONSON (cm): 5.5 Epidural Needle Placement: No CSF, No Blood, No Parasthesia Intrathecal Needle: 27 Gauge Pencan Cerebral Spinal Fluid: Yes, Clear Catheter Insertion (cm): 4 Catheter Type: May - Spring Wound Epidural Dressing: Tegaderm, Tape Anesthesia Tray: Lot Number ([id number]), Expiration Date (11/27), Reference Number ([id number]) Anesthesia Medications: Intrathecal Dose: mcg Fentanyl (10), mg Marcaine MPF (2.5), Time (0340) Epidural Test Dose: 1.5 Lido/Epi (1:200,000), Dose - mL (3), Time (0353), N egative Epidural Infusion: 0.2% Ropivicaine, With Fentanyl 2mcg/ml, Start Time: (0405) Epidural Pump Setting: Bolus Dose - mL (6), Lockout - Minutes (20), Maintenance Rate - mL/hr (6), Maximum per Hour - mL (24) Complications: None SEFERINO FINN CRNA Dec 26, 2018 04:31
--- NOTE | 2018-12-26 05:23 | Labor Progress Note ---
Labor Subjective Progress Notes Subjective Pt decided on epidural and is now resting and comfortable. Labor Objective Vital Signs Vital Signs Date Time Temp Pulse Resp B/P (MAP) Pulse Ox O2 Delivery O2 Flow Rate FiO2 12/25/18 21:27 96.5 87 18 128/66 (86) 96 Room Air Vaginal Discharge/Fluid?: Clear Fluid Cervical Dialation: 5 Cervical Effacement (%): 70 Cervical Consistency: Soft Cervical Position: Mid Station: -1 Presentation: Vertex Uterine Contractions(Q min): 3 Uterine Contraction Strength: Strong UC Resting Tone: Soft Fetus Heart Tones: 135 Heart Tone Variabilty: Moderate FHT Accelerations: 15X15 FHT Decelerations: None FHT Category: I General Exam General Appearance: Alert/Awake/No Acute Distress Respiratory: No Respiratory Distress : Normal Musculoskeletal: No Weakness/Pain Extremities: No Cyanosis,Clubbing or Edema Integumentary: Skin Intact without Lesions or Rash Psychological: Alert & Oriented X3, Appropriate Mood & Affect Other Result Diagram: 12/25/182125 Assessment and Plan Problems: (1) Macrosomia affecting management of mother in third trimester Assessment & Plan: She has progressed to 5/-1/soft/mid. She has some bloody show. The vertex has certainly come down more which is reassuring. Will natasha nue with pitocin, she just reached 200MVU occasionally. We also discussed in detail the concern for possible dystocia due to size of baby. She is aware of the risks of hypoxia or nerve damage if a severe dystocia is noted. We discussed maneuvers that are available very briefly. We also discussed the risk of 3rd or 4th degree laceration due to large baby. In addition, we discussed in detail the process of a . We discussed the risks, benefits and alternatives. All of the patient's and her family's questions were addressed. Prior A/P: 33-year-old at 39w0d presents to L&D for contractions. Her is complicated by GDMA1 and concern for macrosomia. Her last EFW on 12/18/18 was 95%ile at almost 4000gm. She has been noted to have a narrow pubic arch. She was offered PLTCD in clinic by Dr. Christina but elects for trial of labor. I have expressed my concern that she will have CPD and will likely require a delivery. I explained she will not be a candidate for forcep or vacuum delivery. (2) GBS (group B Streptococcus carrier), +RV culture, currently Assessment & Plan: Continue PCN protocol. (3) GDM (gestational diabetes mellitus), class A1 Assessment & Plan: Continue accuchecks every 1-2 hours. Normal levels so far in the 80s. (4) 38 weeks gestation of Problem Qualifiers (1) Macrosomia affecting management of mother in third trimester: Fetus number: single or unspecified fetus Qualified Codes: O36.63X0 - M aternal care for excessive growth, third trimester, not applicable or unspecified MAYRA MAURO MD Dec 26, 2018 05:23
[2018-12-26] MEDS ORDERED: LIDO/EPI 2% MPF 1:200,000 20ML ONE (09:15)
[2018-12-26] MEDS ORDERED: OXYTOCIN 10 UNIT/ML SDV ONE (09:15)
[2018-12-26] MEDS ORDERED: KETOROLAC 30 MG/ML VIAL ONE (09:24)
--- NOTE | 2018-12-26 09:31 | Labor Progress Note ---
Labor Subjective Progress Notes Subjective Pt is comfortable with epidural. Labor Objective Vital Signs Vital Signs Date Time Temp Pulse Resp B/P (MAP) Pulse Ox O2 Delivery O2 Flow Rate FiO2 12/25/18 21:27 96.5 87 18 128/66 (86) 96 Room Air Vaginal Discharge/Fluid?: Clear Fluid Cervical Dialation: 5 Cervical Effacement (%): 70 Cervical Consistency: Soft Cervical Position: Posterior Station: -2 Presentation: Vertex Uterine Contractions(Q min): 3 Uterine Contraction Strength: Strong UC Resting Tone: Soft Fetus Heart Tones: 130 Heart Tone Variabilty: Moderate FHT Accelerations: 15X15 FHT Decelerations: Variable FHT Category: II General Exam General Appearance: Alert/Awake/No Acute Distress Respiratory: No Respiratory Distress Musculoskeletal: No Weakness/Pain Extremities: No Cyanosis,Clubbing or Edema Integumentary: Skin Intact without Lesions or Rash Psychological: Alert & Oriented X3, Appropriate Mood & Affect Other Result Diagram: 12/25/182125 Assessment and Plan Problems: (1) Macrosomia affecting management of mother in third trimester Assessment & Plan: She has not progressed beyond 5cm in multiple hours despite adequate contractions. The fetus is now experiencing variable decelerations. I have recommended proceeding with a primary for arrest of descent and likely CPD. The patient and her agree with this plan. All of their questions have been addressed. We will plan Ancef preoperatively for antibiotics. She was taken to the operating room once it is available. Prior A/P: 33-year-old at 39w0d presents to L&D for contractions. Her is complicated by GDMA1 and concern for macrosomia. Her last EFW on 12/18/18 was 95%ile at almost 4000gm. She has been noted to have a narrow pubic arch. She was offered PLTCD in clinic by Dr. Christina but elects for trial of labor. I have expressed my concern that she will have CPD and will likely require a delivery. I explained she will not be a candidate for forcep or vacuum delivery. (2) GBS (group B Streptococcus carrier), +RV culture, currently Assessment & Plan: Continue PCN protocol. (3) GDM (gestational diabetes mellitus), class A1 Assessment & Plan: Continue accuchecks every 1-2 hours. Normal levels so far i n the 80s. (4) 38 weeks gestation of Problem Qualifiers (1) Macrosomia affecting management of mother in third trimester: Fetus number: single or unspecified fetus Qualified Codes: O36.63X0 - Mater nal care for excessive growth, third trimester, not applicable or unspecified MAYRA MAURO MD Dec 26, 2018 09:31
[2018-12-26] MEDS ORDERED: MORPHINE PF 5 MG/10 ML AMP ONE (09:41)
--- NOTE | 2018-12-26 10:33 | Post Operative Note ---
Operative Note - POWDERER Operative Day Date: Dec 26, 2018 Physicians Surgeon: Blanquita Slate Cutter: Carri Anesthesia: Monae Gómez Diagnosis Pre-Op Diagnosis: IUP at 39wk with arrest of descent CPD Post-Op Diagnosis: Same Viable male, 0955hrs, 3604g, 7#15oz, Apgars 8/9 Procedure Procedure(s): PLTCD Fluids Fluids: IVF: 700cc UOP: 200cc Estimated Blood Loss: 700cc MAYRA MAURO MD Dec 26, 2018 10:33
[2018-12-26] MEDS ORDERED: INFLUENZA VIRUS VAC 0.5ML SYR IM ONE (10:35)
[2018-12-26] MEDS ORDERED: MAGNESIUM HYDROXIDE* 30ML UDCP PO PRN (10:35)
[2018-12-26] MEDS ORDERED: oxyCODON/ACET (*)5/325MG (CII) 1 TAB TAB PO PRN (10:35)
[2018-12-26] MEDS ORDERED: ONDANSETRON 4 MG/2 ML VIAL IV PRN (10:35)
[2018-12-26] MEDS ORDERED: PROMETHAZINE 25 MG/ML 1 ML AMP IVP PRN (10:35)
[2018-12-26] MEDS ORDERED: LANOLIN OINT 7 GM TUBE TP PRN (10:35)
[2018-12-26] MEDS ORDERED: ACETAMINOPHEN 325 MG TAB PO PRN (10:35)
[2018-12-26] MEDS ORDERED: SIMETHICONE 80 MG CHEW CHEW PRN (10:35)
--- NOTE | 2018-12-26 10:40 | Anesthesia Progress Note ---
Progress/Maintenance Anesthesia Note Date: Dec 26, 2018 Anesthesia Note Time: 09:38 Pain Intensity: 0 Pump: Off Dilatation: 5 Anesthesia Treatment: To OR for C/S Assessment and Plan Anesthesia Plan: CSE Anesthesia Stop Day: Dec 26, 2018 Anesthesia Stop Time: 10:32 Epidural Catheter Removal: Removed Catheter Intact, Yes, Removed by: (Juan SANTO) Removal Date: Dec 26, 2018 Removal Time: 10:27 SEFERINO FINN CRNA Dec 26, 2018 10:40
[2018-12-26] MEDS ORDERED: HYDROmorphone HCL 2 MG TAB PO PRN (10:50)
--- NOTE | 2018-12-26 10:53 | OPERATIVE REPORT 1 ---
EVENT DATE: December 26, 2018 SURGEON: Holly Juares MD ANESTHESIA: Epidural with Duramorph by Monae Pruitt CRNA INTERNATIONAL TRADE TEACHER: Suzan Christina DO PREOPERATIVE DIAGNOSIS 1. Intrauterine at 39 weeks and 0 days with arrest of descent. 2. Cephalopelvic disproportion. POSTOPERATIVE DIAGNOSIS 1. Intrauterine at 39 weeks and 0 days with arrest of descent. 2. Cephalopelvic disproportion. 3. Delivery of a viable male infant at 0955 hours, weight 3604 grams or 7 pounds 15 ounces with Apgars of 8 at one and 9 at five minutes. PROCEDURE PERFORMED Primary low transverse delivery. IV FLUIDS 700 cc. URINE OUTPUT 200 cc. ESTIMATED BLOOD LOSS 700 cc. INDICATIONS FOR PROCEDURE This patient is a 33-year-old 1, para 0 who presented originally at 38 weeks and 6 days to Labor and Delivery for contractions. She had been zahira regularly for two days. Her was complicated by gestational diabetes mellitus Type A1 with concern for macrostomia. Her most recent estimated weight on December 18, 2018 was 95th percentile to almost 4000 grams. She was offered a primary caesarean delivery. However, elected for a trial of labor. She, therefore, was augmented with Pitocin. She was able to progress to 5cm but not beyond. The vertex never came below -2 station. After waiting for hours at 5cm, she was consented for a primary for arrest of descent and suspect cephalopelvic disproportion. DESCRIPTION OF PROCEDURE The patient was properly identified and taken to the operating room. She was placed in the supine position with a leftward tilt. She previously had an epidural and Chahal catheter placed. She was then prepped and draped in the usual fashion for a lower abdominal surgery. After adequate anesthesia was confirmed, a Pfannenstiel incision was planned and made with a scalpel. The incision was carried down sharpy to the level of the rectus fascia. The fascia was then nicked in the midline. The incision was extended bilaterally in a blunt fashion. The rectus fascia was then from the underlying rectus muscle up to the supraumbilical plate. This allowed for adequate room for delivery of the infant. The peritoneum was then entered bluntly and extended in a blunt fashion and Sammy O retractor was then placed to allow for visualization of the lower uterine segment. A transverse incision was made on the lower uterine segment, revealing ruptured membranes. The incision was extended in cephalad caudad manner. The was then noted to be in the left OP position and elevated out of the pelvis. The vertex was then delivered through the uterine incision without difficulty. A nuchal cord was noted and delivered around the 's head. The anterior shoulder delivered easily, followed by the posterior shoulder. The remainder of the was easily delivered. The infant had spontaneous cry and spontaneous movement of all four extremities. The 's oropharynx and nasopharynx were bulb suctioned and the was dried and stimulated. After 30 seconds, the cord was clamped x2 and cut and the was passed to nursing personnel in good condition. Cord blood was then obtained and passed off the table. The placenta was delivered manually without difficulty and passed off the table. The uterus was then exteriorized and the Sammy O retractor was removed. The uterus was explored for any remaining clots, debris or placenta. Once this was proven to be clear, the uterine incision was reapproximated using an 0 Vicryl working from one apices to the next. A second imbricating layer of 0 Monocryl was then utilized on the incision. Adequate hemostasis was assured and the uterus was replaced in the abdominal cavity. Pericolic gutters were cleared of clots and debris and the uterine incision was again inspected and noted to be hemostatic. The peritoneum was then reapproximated using 3-0 Monocryl followed by reapproximation of the rectus muscle in the midline. The muscle was then copiously irrigated and noted to be hemostatic. The rectus fascia was then reapproximated, working from one apices to the next. The subcutaneous tissue was copiously irrigated and noted to be hemostatic. The subcutaneous tissue was then reapproximated using 3-0 Monocryl and the skin was closed with Insorb li. A Primapore dressing was then placed followed by a pressure dressing. The patient tolerated the procedure well and recovered in Labor and Delivery with her infant. All sponge and needle counts were correct at the end of this procedure. NATE
--- NOTE | 2018-12-26 10:56 | NUR ---
1028 PT ARRIVED TO PACU VIA CART, VSS, SBAR FROM Akanksha FINN CRNA AND Pato AN, BHUPENDRA. RHOADES IN PLACE 1035 ASSESSMENT UNREMARKABLE, PT REMAINS IN LOW FOWLERS, REQUESTING ICE CHIPS FUNDAL RUB REVEALED FIRMING UP WITH MASSAGE, SPINAL ALREADY REMOVED, SENSATION RETURNED TO LEVEL S1, DENIES PAIN/NAUSEA/ITCHING 1045 SHIVERING HAS DECREASED, VSS, TURNED DOWN TO 1L O2 NC, TOLERATING ICE CHIPS, BP DECREASED SLIGHTLY, WILL HOLD OFF ON ELEVATING HOB UNTIL NEXT READING. 1050 TRANSFERRED TO PT'S ARMS FOR FEEDING,
[2018-12-26] MEDS ORDERED: NALBUPHINE HCL 10 MG/ML AMP IVP PRN (11:05)
--- NOTE | 2018-12-26 11:07 | NUR ---
1100 PT , VSS, BP UNCHANGED, HOB RAISED SLIGHTLY, FUNDAL RUB BY NURSE JAYA PRENORMANRE PROVIDED
--- NOTE | 2018-12-26 11:24 | NUR ---
1115 VSS, BP STABLE, HOB RAISED SIGHTLY PER PT REQUEST, PT TOLERATING ICE CHIPS, DENEIS PAIN, NAUSEA, ITCHING, HEADACHE. SHIVERING HAS RESOLVED COMPLETELY, FUNDUS FIRMED UP WITH MASSAGE, NO LOCHIA PRODUCED, SMALL AMOUNT OF CLEAR, YELLOW URINE IN RHOADES TUBING
--- NOTE | 2018-12-26 11:47 | NUR ---
1130 VSS, READIED PT FOR TRANSFER 1135 TRANSFERRED PT ACROSS THE CROW, REPEAT VITALS STABLE, FAMILY IN ROOM, SBAR TO JOCELYN, RN, PT DENIES PAIN, NAUSEA, ITCHING, OR HEADACHE
[2018-12-26] MEDS ORDERED: KETOROLAC 30 MG/ML VIAL IVP SCH (15:30)
[2018-12-26] MEDS ORDERED: PENICILLIN G 2.5 MILLUN/100 ML 100 ML IVPB SCH (17:00)
[2018-12-26] MEDS: DLR(*) 1000 ML BAG 1,000 ML IV PRN (18:46)
--- NOTE | 2018-12-26 20:53 | OB/GYN Progress Note ---
OB Subjective Progress Notes Subjective Pt is feeling well. Pain is controlled well. She is tolerating po. She is not yet ambulating. Chahal still in place. No chest pain, shortness of breath or dizziness. OB Objective Physical Exam Vital Signs Date Time Temp Pulse Resp B/P (MAP) Pulse Ox O2 Delivery O2 Flow Rate FiO2 12/26/18 19:30 97.7 71 16 116/58 (77) 98 Room Air 12/26/18 14:47 1.0 Intake and Output 12/26/18 07:03 Intake Total 2000 ml Balance 2000 ml IV Total 2000 ml General Appearance: Alert/Awake/No Acute Distress Neurological: No Gross deficits Eyes: Normal Extraocular Movement & Vison Cardiovascular: Normal Rhythm & Peripheral Pulses, Regular Rate and Rhythm Respiratory: No Respiratory Distress, Clear to Auscultation Abdomen: Soft, Non-Tender, Non-Distended, Fundus Firm Incision: Clean, Dry, Intact, Dressing Musculoskeletal: No Weakness/Pain Extremities: No Cyanosis,Clubbing or Edema Integumentary: Skin Intact without Lesions or Rash Psychological: Alert & Oriented X3, Appropriate Mood & Affect Result Diagram: 12/25/182125 Assessment and Plan Problems: (1) Status post delivery Assessment & Plan: POD#0 s/p PLTCD for CPD and arrest of descent. She is doing well. Routine postop cares. (2) GDM (gestational diabetes mellitus), class A1 Assessment & Plan: No further accuchecks. MAYRA MAURO MD Dec 26, 2018 20:53
[2018-12-26] MEDS ORDERED: HYDR2TAB74 PO (20:56)
[2018-12-26] MEDS ORDERED: IBUP800T37 PO (20:56)
[2018-12-26] MEDS: DOCUSATE CALCIUM 240 MG CAP PO SCH (22:35)
[2018-12-26] MEDS: FAMOTIDINE 20 MG TAB PO SCH (22:35)
[2018-12-26] MEDS: KETOROLAC 30 MG/ML VIAL IVP SCH (22:36)
[2018-12-27] MEDS: DLR(*) 1000 ML BAG 1,000 ML IV PRN (03:03)
[2018-12-27 03:08] VITALS: BP 131/65
[2018-12-27] MEDS: KETOROLAC 30 MG/ML VIAL IVP SCH (04:51)
[2018-12-27 06:10] LABS: PLATELET COUNT, AUTOMATED 179 K/uL (150-450)
[2018-12-27] MEDS ORDERED: IBUPROFEN 800 MG TAB PO SCH (09:30)
[2018-12-27 09:40] VITALS: BP 115/57
--- NOTE | 2018-12-27 09:58 | OB/GYN Progress Note ---
OB Subjective Progress Notes Subjective Doing well. Pain controlled with oral medications. Tolerating regular diet. Ambulating in room only. Voiding. Normal lochia. No preeclampsia symptoms. OB Objective Physical Exam Vital Signs Date Time Temp Pulse Resp B/P (MAP) Pulse Ox O2 Delivery O2 Flow Rate FiO2 12/27/18 03:08 97.5 70 18 131/65 (87) 94 Room Air 12/26/18 14:47 1.0 Intake and Output 12/27/18 07:03 Intake Total 2950 ml Output Total 2500 ml Balance 450 ml Intake Oral 1600 ml IV Total 1350 ml Output Urine Total 2500 ml General Appearance: Alert/Awake/No Acute Distress Neurological: No Gross deficits Eyes: Normal Extraocular Movement & Vison Cardiovascular: Normal Rhythm & Peripheral Pulses, Regular Rate and Rhythm Respiratory: No Respiratory Distress, Clear to Auscultation Abdomen: Soft, Non-Tender, Non-Distended, Fundus Firm Incision: Clean, Dry, Intact Musculoskeletal: No Weakness/Pain Extremities: No Cyanosis,Clubbing or Edema Integumentary: Skin Intact without Lesions or Rash Psychological: Alert & Oriented X3, Appropriate Mood & Affect Result Diagram: 12/27/18 0553 Assessment and Plan Problems: (1) Status post delivery Assessment & Plan: POD#1 s/p PLTCD for CPD and arrest of descent. She is doing well. Routine postop cares. Encourage more ambulation. (2) GDM (gestational diabetes mellitus), class A1 Assessment & Plan: No further accuchecks. Plan 2hr GTT 6 weeks . MAYRA MAURO MD Dec 27, 2018 09:58
[2018-12-27] MEDS: FAMOTIDINE 20 MG TAB PO SCH ×2 (10:55→21:30)
[2018-12-27] MEDS: DOCUSATE CALCIUM 240 MG CAP PO SCH ×2 (10:55→21:30)
[2018-12-27] MEDS: IBUPROFEN 800 MG TAB PO SCH ×2 (10:56→18:14)
--- NOTE | 2018-12-27 12:24 | Anesthesia Post Eval Note ---
Anesthesia Post Eval Note Vital Signs Date Time Temp Pulse Resp B/P (MAP) Pulse Ox O2 Delivery O2 Flow Rate FiO2 12/27/18 03:08 97.5 70 18 131/65 (87) 94 Room Air 12/26/18 14:47 1.0 Hematology Test 12/27/18 05:53 White Blood Count 7.7 k/uL (4.5-11.0) Red Blood Count 3.61 M/uL (4.17-5.56) L Hemoglobin 10.1 g/dL (12.0-16.0) L Hematocrit 29.8 % (34.0-47.0) L Mean Corpuscular Volume 82.6 fL (80.0-96.0) Mean Corpuscular Hemoglobin 27.9 pg (26.0-33.0) Mean Corpuscular Hemoglobin Concent 33.8 g/dL (32.0-36.0) Red Cell Distribution Width 16.2 % (11.5-14.5) H Platelet Count 179 K/uL (150-450) Mean Platelet Volume 7.6 fL (7.2-11.1) Neutrophils (%) (Auto) 69.9 % (39.4-72.5) Lymphocytes (%) (Auto) 20.1 % (17.6-49.6) Monocytes (%) (Auto) 6.7 % (4.1-12.4) Eosinophils (%) (Auto) 2.7 % (0.4-6.7) Basophils (%) (Auto) 0.6 % (0.3-1.4) Nucleated RBC Relative Count (auto) 0.0 /100WBC Neutrophils # (Auto) 5.4 K/uL (2.0-7.4) Lymphocytes # (Auto) 1.6 K/uL (1.3-3.6) Monocytes # (Auto) 0.5 K/uL (0.3-1.0) Eosinophils # (Auto) 0.2 K/uL (0.0-0.5) Basophils # (Auto) 0.0 K/uL (0.0-0.1) Nucleated RBC Absolute Count (auto) 0.00 K/uL Chemistry Test 12/26/18 08:40 Whole Blood Glucose 71 mg/DL (75-110) Pt able to participate in Eval: Yes Cardiovascular Status: Satisfactory Respiratory Status: Satisfactory Pain Managment: Satisfactory PO Nausea/Vomiting: Satisfactory Temperature Management: Satisfactory Mental Status: Satisfactory, Alert, Oriented X3 Post-Op Hydration Status: Satisfactory, Tolerating PO Well, Voiding w/o Difficulty Anesthesia Type: LEB Anesthesia Tolerance: Post op day 1 for primary C/S for failure to progress and intolerance of labor. Her epidural for labor provided solid anesthesia for c/s. She has ambulated and has full sensation bilaterally. Stick site is w/o redness drainage and swelling. Signs of infection are reviewed and pt agrees to seek medical attention should these or persistent STEVENS occur. JOANN HALL BILL HIKER Dec 27, 2018 12:23
[2018-12-27 13:20] VITALS: BP 117/56
[2018-12-27 19:46] VITALS: BP 132/61
[2018-12-28 03:06] VITALS: BP 140/67
[2018-12-28] MEDS: IBUPROFEN 800 MG TAB PO SCH ×3 (03:06→18:16)
[2018-12-28 08:00] VITALS: BP 117/56
--- NOTE | 2018-12-28 10:11 | OB/GYN Discharge Summary ---
Discharge Summary Reason for Hosp/Final Diag: (1) Status post delivery Hospital Course & Plan: Reason for Hospitalization: IUP at 39wk with arrest of descent CPD Procedures Performed: delivery, epidural, spinal Delivery Type: C/D Hospital Course: IUP at 39wk with arrest of descent and CPD, uncomplicated period Delivery Information: see delivery note Estimated blood loss: 700 Episiotomy: none Laceration: N/A Pain Management: epidural and spinal Subjective: Pt is feeling very well today and ready to go home. She is voiding well and passing gas. She is tolerating her pain with ibuprofen Abdominal pain: mild Perineal pain: none Vaginal bleeding: minimal without clots Flatus: yes UTI symptoms: Denies Feeding modality: Breast Problems with breast feeding: None Bowel movement: no Ambulating: yes Preeclampsia symptoms: denies Nausea/vomiting: none control: unsure will discuss at 2 weeks Objective Exam: Vitals: Normotensive and afebrile Breasts: soft, non tender, nippled everted, right nipple has 1 crack, + colostrum Abdomen: FF 2 below the U Perineum: intact Lochia: not lots, normal flow Extremities: BLE, soft non tender and - Homans sign Disposition: Patient discharged to home in medically stable condition. No Known Allergies Medication Instructions Given to the Patient at Discharge: Ibuprofen 800mg PO TID for 5-7 days as needed Dilaudid 2mg PO every 4-6 hours PRN pain Follow-up Appointment: 2&[address] Mayra Juares Activity/Restrictions: Pelvic rest; nothing in vagina for six weeks, no heavy lifting greater than 10lbs for 6 weeks Return Precautions: Patient instructed to call the clinic or return to hospital for fever > 101 degree F; chills; severe nausea or vomiting; inability to tolerate anything by mouth for > 24 hours; increasingly severe abdominal/pelvic pain; foul smelling vaginal discharge; vaginal bleeding > 1 pad per hour for > 2 hours; separation, drainage, or redness of incision or laceration site. Reviewed depression and pre-eclampsia s/s and when to seek care. (2) GDM (gestational diabetes mellitus), class A1 Hospital Course & Plan: No further accuchecks. Plan 2hr GTT 6 weeks . Lates Vital Signs Vital Signs Date Time Temp Pulse Resp B/P (MAP) Pulse Ox O2 Delivery O2 Flow Rate FiO2 7/21/19 08:00 97.5 65 16 117/56 (76) 95 Room Air 12/26/18 14:47 1.0 Weight (Pounds): 209 Result Diagram: 12/27/18 0553 Condition: Improved Discharge: Home Home Meds Active Scripts Hydromorphone Hcl (DILAUDID) 2 Mg Tablet, 2 MG PO Q4-6H PRN for pain, #15 TAB 0 Refills Prov:MAYRA JUARES MD 12/26/18 Ibuprofen (IBUPROFEN) 800 Mg Tablet, 1 TAB PO Q8H PRN for pain, #40 TAB 0 Refills TAKE WITH FOOD EVERY 8 HOURS Prov:MAYRA JUARES MD 12/26/18 Lancets (Blood Lancets) 30 Gauge Each, EA QID for Gestational Diabetes, #100 4 Refills Prov:WILLIE CHOPRA CNM 10/14/18 Blood-Glucose Meter (BLOOD GLUCOSE METER) 1 Each Each, EACH MC for Gestational Diabetes, #1 0 Refills Check blood sugar every morning and 2 hours after each meal. Prov:WILLIE CHOPRA CNM 10/14/18 Discontinued Scripts Blood Sugar Diagnostic (BLOOD GLUCOSE TEST) 1 Each Strip, 1 EACH QID for Gestational Diabetes, #100 STRIP 4 Refills Prov:WILLIE CHOPRA CNM 10/14/18 Follow up in: 2 wks PO Discharge Diet: As Tolerates, Resume Prior Admit Diet, Increase Fluid Intake Discharge Activity: As Tolerates, No Heavy Lifting x 6 wks, No Heavy Lifting > 10lb, Pelvic Rest WILLIE CHOPRA CNM Dec 28, 2018 10:11
[2018-12-28] MEDS: DOCUSATE CALCIUM 240 MG CAP PO SCH (10:31)
[2018-12-28] MEDS: FAMOTIDINE 20 MG TAB PO SCH (10:31)
[2018-12-28] MEDS ORDERED: MEASLES,MUMP,RUBELLA VAC 0.5ML SUBQ ONE (10:35)
[2018-12-28] MEDS ORDERED: DIPHTH/TETANUS/ACEL. PERTUSSIS IM ONLY ONE (10:35)
== END 2018-12-28 19:00 | disposition home or self-care (01) | DRG 788 ==
LOC: OB 18:46
PROVIDERS: ADMIT Obstetrics & Gynecology; ATTEND Obstetrics & Gynecology
PROC: 10D00Z1 Extraction of Products of Conception, Low, Open Approach (ICD-10-PCS; principal; 2018-12-25)
DX: O24.420 Gestational diabetes mellitus in childbirth, diet controlled (principal); O65.8 Obstructed labor due to other maternal pelvic abnormalities; O99.824 Streptococcus B carrier state complicating childbirth; O69.81X0 Labor and delivery complicated by cord around neck, without compression, not applicable or unspecified; Z3A.38 38 weeks gestation of pregnancy; Z37.0 Single live birth; Z88.5 Allergy status to narcotic agent; Z88.6 Allergy status to analgesic agent
CPT/HCPCS: 36415; 36416; 82948; 85025; 86850; 86900; 86901; J0690; J1885; J2270; J2540; J2590; J2765; J7120